=== PATIENT | male | born 1955 ===

== ENCOUNTER 2021-07-01 21:31 | Emergency (ER) | payer SELFPAY ==
[2021-07-01] MEDS ORDERED: chlordiazePOXIDE 25 MG CAP PO PRN ×2 (22:54)
--- NOTE | 2021-07-01 22:57 | Emergency Department Report ---
ED Alcohol HPI - General Chief Complaint: Medical Clearance Stated Complaint: ETOH/DEPRESSION Time Seen by Provider: 07/01/21 22:42 Source: patient Mode of arrival: Ambulatory Limitations: No Limitations - History of Present Illness Initial Comments: 66-year male with a past medical history of depression alcohol abuse presents to the hospital requesting to be started on his depression medications and help with alcohol detox. Patient drinks alcohol daily. His last drink was yesterday. Yesterday he had a sixpack of beer and 2 pints of vodka. Patient has been noncompliant with psychiatric medication for "a few months". He was previously on Remeron, Zoloft, and trazodone. He complains of depression but denies suicidal ideation, homicidal ideation, or psychosis. He states he is feeling a little shaky. History alcohol withdrawal tremors without seizures. He denies pain or fever. Patient is homeless. - Related Data Previous Rx's Medication Instructions Recorded Last Taken Type chlordiazePOXIDE [Librium] 50 mg PO DAILY #20 capsule 07/02/21 Unknown Rx Allergies Allergy/AdvReac Type Severity Reaction Status Date / Time Penicillins Allergy Hives Verified 07/01/21 22:03 ED Review of Systems ROS: Stated complaint: ETOH/DEPRESSION Other details as noted in HPI Comment: All other systems reviewed and negative ED Past Medical Hx - Past Medical History Previous Medical History?: Yes Hx Psychiatric Treatment: Yes (depression) - Medications Home Medications: Home Medications Medication Instructions Recorded Confirmed Last Taken Type chlordiazePOXIDE [Librium] 50 mg PO DAILY #20 capsule 07/02/21 Unknown Rx ED Physical Exam - General Limitations: No Limitations - Other Other exam information: General: No acute distress Head: Atraumatic Eyes: normal appearance ENT: Moist mucous membranes Neck: Normal appearance, no midline tenderness Chest: Clear to auscultation bilaterally CV: Regular rate and rhythm Abdomen: Soft, normal bowel sounds, nontender, nondistended, no rebound or guarding Back: Normal inspection Extremity: Normal inspection, full range of motion Neuro: Alert O x 3, no facial asymmetry, speech clear, no gross motor sensory deficit. No tremor noted Psych: Appropriate behavior Skin: No rash ED Course Vital Signs 07/01/21 22:02 Temperature 98.4 F Pulse Rate 79 Respiratory 16 Rate Blood Pressure 116/55 [Right] O2 Sat by Pulse 100 Oximetry - Reevaluation(s) Reevaluation #1: 07/01/21 22:57 Labs ordered, [facility] protocol ordered Reevaluation #2: 07/02/21 00:50 Patient CIWA score 6 and does not meet criteria for Librium as per protocol. However, patient is at risk for withdrawing upon discharge and will be provided 1 dose of Librium prior to discharge. ED Medical Decision Making - Lab Data Result diagrams: 07/01/21 23:28 07/01/21 23:28 Lab Results 07/01/21 07/01/21 Range/Units 23:28 23:28 WBC 7.6 (4.5-11.0) K/mm3 RBC 3.96 (3.65-5.03) M/mm3 Hgb 11.3 L (11.8-15.2) gm/dl Hct 34.2 L (35.5-45.6) % MCV 87 (84-94) fl MCH 29 (28-32) pg MCHC 33 (32-34) % RDW 17.6 H (13.2-15.2) % Plt Count 175 (140-440) K/mm3 Lymph % (Auto) 20.4 (13.4-35.0) % [place] % (Auto) 6.4 (0.0-7.3) % Eos % (Auto) 2.7 (0.0-4.3) % Baso % (Auto) 0.6 (0.0-1.8) % Lymph # (Auto) 1.6 (1.2-5.4) K/mm3 [place] # (Auto) 0.5 (0.0-0.8) K/mm3 Eos # (Auto) 0.2 (0.0-0.4) K/mm3 Baso # (Auto) 0.0 (0.0-0.1) K/mm3 Seg Neutrophils % 69.9 (40.0-70.0) % Seg Neutrophils # 5.3 (1.8-7.7) K/mm3 Sodium 137 (137-145) mmol/L Potassium 3.4 L (3.6-5.0) mmol/L Chloride 102.2 (98-107) mmol/L Carbon Dioxide 24 (22-30) mmol/L Anion Gap 14 mmol/L BUN 8 L (9-20) mg/dL Creatinine 0.7 L (0.8-1.3) mg/dL Estimated GFR > 60 ml/min BUN/Creatinine Ratio 11 % Glucose 177 H (75-100) mg/dL Calcium 8.7 (8.4-10.2) mg/dL Magnesium 2.00 (1.7-2.3) mg/dL Total Bilirubin 0.30 (0.1-1.2) mg/dL AST 10 (5-40) units/L ALT 7 (7-56) units/L Alkaline Phosphatase 207 H (35-129) units/L Total Protein 6.4 (6.3-8.2) g/dL Albumin 3.8 L (3.9-5) g/dL Albumin/Globulin Ratio 1.5 % - Medical Decision Making 66-year-old male alcoholic presents to the hospital requesting alcohol detox addition to restarting his psychiatric medication. He does not endorse suicidal ideation, homicidal ideation, or psychosis. Patient does not appear to have significant withdrawals at this time. Provided 1 dose of Librium prior to discharge. Patient received p.o. potassium for mild hypokalemia. Patient will be prescribed a Librium taper and provided outpatient resources for mental health for a refill in his psych prescription and alcohol detox Critical Care Time: No Critical care attestation.: If time is entered above; I have spent that time in minutes in the direct care of this critically ill patient, excluding procedure time. ED Disposition Clinical Impression: Alcohol abuse, Depression, Noncompliance with medication regimen, Homeless Disposition: 01 HOME / SELF CARE / HOMELESS Is pt being admited?: No Does the pt Need Aspirin: No Condition: Stable Instructions: Alcohol Use Disorder Additional Instructions: Take the medication as prescribed. Follow-up with your doctor or doctor/clinic provided. Return if symptoms worsen as indicated by your discharge in structions. Professional and Agency Contacts To help [facility] (01/04) [place] Crisis Line: Suicide Prevention Line: Crisis Text Line: Text ``START to 968353 Emergency: 911 Outpatient COMMUNITY Behavioral Health Resources: [facility]: [facility] [address] [place] [address] [facility] [address] [place] [address] Saturday thru Saturday - 8am - 5pm Call to schedule an assessment for mental health and substance abuse programs [facility] Address: [address] [place] [address] Saturday thru Saturday- 7am-2pm [facility] Address: [address] [place] [address] Saturday thru Saturday: 8:30AM-5PM SUBSTANCE ABUSE PROGRAMS: [facility]: Location: [place], [place] [facility] Address: [address] [place] [address] [facility]: Address: [address] [place] [address] [facility]: Address: [address] [place] [address] [facility]: Address: [address] [place] [address] Prescriptions: chlordiazePOXIDE [Librium] 50 mg PO DAILY #20 capsule Referrals: PRIMARY CARE, [Primary Care Provider] - 3-5 Days Dom, psychiatry [Other] - 3-5 Days (For alcohol detox and mental health) [facility] [Provider Group] - 3-5 Days Time of Disposition: 00:57
[2021-07-01 23:47] LABS: Basophils % (Auto) 0.6 % (0.0-1.8); Eosinophils # (Auto) 0.2 K/mm3 (0.0-0.4); Eosinophils % (Auto) 2.7 % (0.0-4.3); Hematocrit 34.2 % (35.5-45.6); Hemoglobin 11.3 gm/dl (11.8-15.2); Lymphocytes # (Auto) 1.6 K/mm3 (1.2-5.4); Lymphocytes % (Auto) 20.4 % (13.4-35.0); Mean Corpuscular HGB Conc 33 % (32-34); Mean Corpuscular Volume 87 fl (84-94); Monocytes # (Auto) 0.5 K/mm3 (0.0-0.8); Monocytes % (Auto) 6.4 % (0.0-7.3); Platelet Count 175 K/mm3 (140-440); Red Blood Count 3.96 M/mm3 (3.65-5.03); Red Cell Distribution Width 17.6 % (13.2-15.2)
[2021-07-02 00:09] LABS: Alanine Aminotransferase 7 units/L (7-56); Albumin 3.8 g/dL (3.9-5); Blood Urea Nitrogen 8 mg/dL (9-20); Calcium 8.7 mg/dL (8.4-10.2); Hemolysis Index 3
[2021-07-02 00:10] LABS: BUN/Creatinine Ratio 11
[2021-07-02] MEDS ORDERED: POTASSIUM CHLORIDE ER 20 MEQ TAB PO ONE (00:28)
[2021-07-02] MEDS ORDERED: chlordiazePOXIDE 25 MG CAP PO ONE (00:45)
[2021-07-02 01:28] VITALS: BP 101/77
== END 2021-07-02 01:27 | disposition home or self-care (01) ==
LOC: ED 21:31
DX: F32.A Depression, unspecified (principal); F10.10 Alcohol abuse, uncomplicated; Z91.14 Patient's other noncompliance with medication regimen; Z59.00 Homelessness unspecified; R25.1 Tremor, unspecified; Z88.0 Allergy status to penicillin
CPT/HCPCS: 36415; 80053; 83735; 85025; 99283